=== PATIENT | female | born 1945 | race Caucasian/White ===

== ENCOUNTER 2020-01-26 20:13 | Inpatient (IN) | payer MEDICARE ==
[~2020-01-26] VITALS: Ht 160 cm; Wt 70.0 kg
[2020-01-26] MEDS ORDERED: IOHEXOL 350 MG/ML 100 ML VIAL. IV ONE (20:30)
[2020-01-26 20:49] LABS: BASO % 0 % (0-3); EOS % 0 % (0-3); HEMATOCRIT 47.3 % (36.0-47.0); HEMOGLOBIN 15.8 g/dL (12.0-15.5); LYMPH # 0.5 x10^3/uL (1.0-4.8); LYMPH % 5 % (24-48); MEAN CORPUSCULAR HEMOGLOBIN 34 pg (25-35); MEAN CORPUSCULAR HGB CONC 34 g/dL (31-37); MEAN CORPUSCULAR VOLUME 101 fL (79-100); MONO # 0.8 x10^3/uL (0.0-1.1); MONO % 8 % (0-9); NEUT # 9.1 x10^3uL (1.8-7.7); NEUT % 87 % (31-73); PLATELET COUNT 192 x10^3/uL (140-400); RED CELL DISTRIBUTION WIDTH 13.7 % (11.5-14.5); WHITE BLOOD COUNT 10.5 x10^3/uL (4.0-11.0)
--- NOTE | 2020-01-26 20:54 | RAD ---
Exam: CT head INDICATION: Aneurysm, confusion, similar to prior bleed TECHNIQUE: Sequential axial images through the head were obtained without the administration of IV contrast. Comparisons: None FINDINGS: No focal parenchymal lesion or hemorrhage is identified. There is no midline shift or sulcal effacement. There is aneurysm clipping in the right carotid terminus. Patchy hypodensity in the periventricular white matter particularly in the frontal lobes. No acute vascular territory infarction is identified. Mendes-white distinction is preserved. The ventricular system is within normal limits without compression hydrocephalus. The basal cisterns are well maintained. The visualized portions of the paranasal sinuses and mastoid air cells are well-pneumatized. No acute fractures. IMPRESSION: 1. 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 Moderate small vessel ischemic change, technically age indeterminate without recent prior imaging. No acute hemorrhage. 2. Basilar artery is somewhat hyperdense. Attention on CTA Exposure: One or more of the following in the visualized dose reduction techniques were utilized for this examination: 1. Automated exposure control 2. Adjustment of the MA and/or KV according to patient size Use of iterative of reconstructive technique FOR INTERNAL CODING PURPOSES Critical result: Findings discussed with FORTUNATO BRANNON at 01/26/2020 8:49 PM. RESULT CODE: (C) Electronically signed by: Jaspreet Erwin MD (01/26/2020 8:51 PM) [facility]
[2020-01-26 21:01] LABS: CALCIUM 9.7 mg/dL (8.5-10.1); CREATININE 1.8 mg/dL (0.6-1.0); GFR 27.4
[2020-01-26 21:08] LABS: ALBUMIN 3.9 g/dL (3.4-5.0); ALBUMIN/GLOBULIN RATIO 0.9 (1.0-1.7); TOTAL BILIRUBIN 1.7 mg/dL (0.2-1.0); TOTAL PROTEIN 8.3 g/dL (6.4-8.2)
--- NOTE | 2020-01-26 21:29 | RAD ---
Exam: CTA head and neck INDICATION: History of aneurysm, confusion, similar prior bleed TECHNIQUE: Sequential axial images through the head and neck obtained following the administration of 75 mL of Omni 350 IV contrast. Sagittal and coronal reformatted images were reconstructed from the axial data and reviewed. 3-D reformatted images were reconstructed from the axial data and reviewed. Comparisons: CT head without contrast same day FINDINGS: CTA NECK: Visualized portions of the thoracic aorta are unremarkable. Standard three-vessel aortic arch anatomy. Right common carotid artery is patent without evidence stenosis, occlusion or aneurysm. Minimal plaque at the origin of the right internal carotid artery without significant stenosis. Left common carotid artery is patent without evidence of stenosis, occlusion or aneurysm. Minimal plaque at the origin of the left internal carotid artery without significant stenosis. Right vertebral artery is patent to the basilar confluence without evidence of stenosis, occlusion or aneurysm. Left vertebral artery is patent to basilar confluence without evidence of stenosis, occlusion or aneurysm. Question micronodular lung apices. CTA HEAD: Minimal calcified plaque cavernous segment of the right internal carotid artery without significant stenosis. There is a embolization coils noted at the right carotid terminus. Right MCA is patent. Right SOHA is patent. Minimal calcified plaque at the cavernous segment of the left internal carotid artery without significant stenosis. Left MCA is patent. Left SOHA is patent. Basilar artery is patent without evidence of stenosis, occlusion or aneurysm. clinical cytogeneticist scientist are patent bilaterally. IMPRESSION: 1. No enlarged vessel occlusion. 2. Numerous micronodules seen at the visualized upper lung seen in the setting of atypical infectious process. Exposure: One or more of the following in the visualized dose reduction techniques were utilized for this examination: 1. Automated exposure control 2. Adjustment of the MA and/or KV according to patient size 3. Use of iterative of reconstructive technique FOR INTERNAL CODING PURPOSES Critical result: Findings discussed with FORTUNATO BRANNON at 01/26/2020 9:20 PM. RESULT CODE: (C) Electronically signed by: Jaspreet Erwin MD (01/26/2020 9:26 PM) [facility]
[2020-01-26] MEDS ORDERED: cefTRIAXone SODIUM 1 GM VIAL ONE (21:54)
[2020-01-26] MEDS ORDERED: IV NORMAL SALINE 1,000ML 1,000 ML IV ONE (22:00)
[2020-01-26 22:01] LABS: BARBITURATES NEG (NEG); BENZODIAZEPINES NEG (NEG); CANNABINOIDS NEG (NEG); COCAINE NEG (NEG); METHADONE NEG (NEG); OPIATES NEG (NEG); PHENCYCLIDINE NEG (NEG)
[2020-01-26 22:06] LABS: AMPHETAMINE/METHAMPHETAMINE NEG (NEG); CLARITY,URINE HAZY; COLOR,URINE AMBER
[2020-01-26 22:07] LABS: BACTERIA,URINE FEW /HPF (0-FEW); BILIRUBIN,URINE NEG (NEG); GLUCOSE,URINE NEG (NEG); NITRITE,URINE NEG (NEG); RBC,URINE RARE /HPF (0-2); SQUAMOUS EPITHELIAL CELL,UR FEW /LPF; UROBILINOGEN,URINE 0.2 mg/dL (0.2 mg/dL)
--- NOTE | 2020-01-26 22:28 | RAD ---
Exam: Chest one view INDICATION: Altered mental status TECHNIQUE: Frontal view of the chest Comparisons: None FINDINGS: The cardiomediastinal silhouette and pulmonary vessels are within normal limits. The lung and pleural spaces are clear. IMPRESSION: No acute cardiopulmonary process. Electronically signed by: Jaspreet Erwin MD (01/26/2020 10:25 PM) BRENDA
[2020-01-26] MEDS ORDERED: CONTRAST GIVEN. MC PRN (22:30)
--- NOTE | 2020-01-26 22:33 | PHYS DOC ---
Adult General Chief Complaint Chief Complaint: HALLUCINATIONS AUDIBLE/VISUAL HPI HPI Patient is a 75-year-old female with past medical history of aneurysms who presents to the emergency room with altered mental status. Family brought her in after finding her laying on the floor. Patient reports that she got down on the floor to clean something but was unable to get up. She has been laying there is for the last 4 days. She not want to call her family as she did not want them having to clean her up. Family states that she is very confused and was hallucinating upon their arrival. They state this is similar to when she has had a bleeding aneurysm in the past. She denies being ill prior to this. She states she has a history of not being able to get up off the ground. She denies chest pain, shortness of breath, cough, headache, chills, sweats, fever, abdominal pain, nausea, vomiting. Review of Systems Review of Systems Complete ROS is negative unless otherwise documented in HPI Current Medications Current Medications Current Medications Medications (Trade) Dose Ordered Sig/Angel Start Time Stop Time Status Last Admin Dose Admin Ceftriaxone Sodium 1 gm/ Sodium Chloride 50 ml @ 100 mls/hr 1X ONCE 01/26/20 22:30 01/26/20 22:59 01/26/20 22:05 100 MLS/HR Ceftriaxone Sodium (Rocephin) 1 gm STK-MED ONCE 01/26/20 21:54 01/26/20 21:55 DC Iohexol (Omnipaque 350 Mg/ml) 100 ml 1X ONCE 01/26/20 20:30 01/26/20 20:34 DC 01/26/20 20:40 100 ML Sodium Chloride 1,000 ml @ 1,000 mls/hr 1X ONCE 01/26/20 22:00 01/26/20 22:59 01/26/20 22:05 1,000 MLS/HR Allergies Allergies Allergies Coded Allergies Type Severity Reaction Last Updated Verified Tetanus Vaccines and Toxoid Allergy Intermediate 01/26/20 Yes Physical Exam Physical Exam General: Awake, alert, NAD. Well Nourished, well hydrated. Cooperative HEENT: Atraumatic, EOMI, PERRL, airway patent, moist oral mucosa Neck: Supple, trachea midline Respiratory: CTA bilaterally, normal effort, no wheezing/crackles CV: Tachycardic, no murmur, cap refill <2 GI: Soft, nondistended, nontender, no masses MSK: No obvious deformities Skin: Warm, dry. Excoriations to bilateral labia and inner thighs. Pressure wounds to bilateral elbows, buttocks, back Neuro: A&O x3, speech NL, sensory and motor grossly intact, no focal deficits Psych: Normal affect, normal mood, not suicidal or homicidal Current Patient Data Lab Results Laboratory Tests Test 01/26/20 20:30 01/26/20 21:30 White Blood Count 10.5 x10^3/uL (4.0-11.0) Red Blood Count 4.70 x10^6/uL (3.50-5.40) Hemoglobin 15.8 g/dL (12.0-15.5) H Hematocrit 47.3 % (36.0-47.0) H Mean Corpuscular Volume 101 fL (79-100) H Mean Corpuscular Hemoglobin 34 pg (25-35) Mean Corpuscular Hemoglobin Concent 34 g/dL (31-37) Red Cell Distribution Width 13.7 % (11.5-14.5) Platelet Count 192 x10^3/uL (140-400) Neutrophils (%) (Auto) 87 % (31-73) H Lymphocytes (%) (Auto) 5 % (24-48) L Monocytes (%) (Auto) 8 % (0-9) Eosinophils (%) (Auto) 0 % (0-3) Basophils (%) (Auto) 0 % (0-3) Neutrophils # (Auto) 9.1 x10^3uL (1.8-7.7) H Lymphocytes # (Auto) 0.5 x10^3/uL (1.0-4.8) L Monocytes # (Auto) 0.8 x10^3/uL (0.0-1.1) Eosinophils # (Auto) 0.0 x10^3/uL (0.0-0.7) Basophils # (Auto) 0.0 x10^3/uL (0.0-0.2) Activated Partial Thromboplast Time 24 SEC (23-33) Sodium Level 141 mmol/L (136-145) Potassium Level 3.0 mmol/L (3.5-5.1) L Chloride Level 105 mmol/L (98-107) Carbon Dioxide Level 16 mmol/L (21-32) L Anion Gap 20 (6-14) H Blood Urea Nitrogen 39 mg/dL (7-20) H Creatinine 1.8 mg/dL (0.6-1.0) H Estimated GFR (Cockcroft-Gault) 27.4 BUN/Creatinine Ratio 22 (6-20) H Glucose Level 237 mg/dL (70-99) H Glucose (Fingerstick) 243 mg/dL (70-99) H Calcium Level 9.7 mg/dL (8.5-10.1) Total Bilirubin 1.7 mg/dL (0.2-1.0) H Aspartate Amino Transferase (AST) 53 U/L (15-37) H Alanine Aminotransferase (ALT) 51 U/L (14-59) Alkaline Phosphatase 113 U/L (46-116) Lactate Dehydrogenase 298 U/L (81-234) H Creatine Kinase 915 U/L (26-192) H Troponin I Quantitative < 0.017 ng/mL (0-0.055) Total Protein 8.3 g/dL (6.4-8.2) H Albumin 3.9 g/dL (3.4-5.0) Albumin/Globulin Ratio 0.9 (1.0-1.7) L Urine Collection Type U cath Urine Color Kerry Urine Clarity Hazy Urine pH 6.0 Urine Specific [place] 1.025 Urine Protein 100 mg/dl (NEG-TRACE) Urine Glucose (UA) Neg mg/dL (NEG) Urine Ketones (Stick) 40 mg/dL (NEG) Urine Blood Trace (NEG) Urine Nitrite Neg (NEG) Urine Bilirubin Neg (NEG) Urine Urobilinogen Dipstick 0.2 mg/dL (0.2 mg/dL) Urine Leukocyte Esterase Neg (NEG) Urine RBC Rare /HPF (0-2) Urine WBC 5-10 /HPF (0-4) Urine Squamous Epithelial Cells Few /LPF Urine Bacteria Few /HPF (0-FEW) Urine Opiates Screen Neg (NEG) Urine Methadone Screen Neg (NEG) Urine Barbiturates Neg (NEG) Urine Phencyclidine Screen Neg (NEG) Urine Amphetamine/Methamphetamine Neg (NEG) Urine Benzodiazepines Screen Neg (NEG) Urine Cocaine Screen Neg (NEG) Urine Cannabinoids Screen Neg (NEG) Urine Ethyl Alcohol Neg (NEG) EKG EKG [] Radiology/Procedures Radiology/Procedures [] Heart Score Risk Factors: Risk Factors: DM, Current or recent (<one month) smoker, HTN, HLP, family history of CAD, obesity. Risk Scores: Risk Factors: DM, Current or recent (<one month) smoker, HTN, HLP, family history of CAD, obesity. Course & Med Decision Making Course & Med Decision Making Pertinent Labs and Imaging studies reviewed. (See chart for details) Patient is 75-year-old female who presents to the emergency room with altered mental status. She does have signs of laying on the ground for the last 4 days. She was taken straight to CT for CT head and CT angio given her history of aneurysm. Patient does not have a bleeding aneurysm at this time. She does have significant dehydration with uremia. She will be given fluids in the emergency room. CT angio did catch some nodules that could be related to coronavirus and Covid swab was done. Patient will be admitted for further care and evaluation. Dragon Disclaimer Dragon Disclaimer This electronic medical record was generated, in whole or in part, using a voice recognition dictation system. Departure Departure: Impression: Primary Impression: Altered mental status Additional Impressions: Dehydration Pressure injury of skin Uremia Hypokalemia Disposition: ADMITTED INPT THIS HOSP Condition: STABLE Referrals: ADELE HAQ MD (PCP) Problem Qualifiers FORTUNATO BRANNON MD Jan 26, 2020 22:32
[2020-01-26] MEDS ORDERED: DIPH,PERTUSS(ACELL),TET VAC/PF 0.5 ML SYRINGE. VAX IM ONE (23:00)
[2020-01-26] MEDS ORDERED: ONDANSETRON PF 4 MG/2 ML VIAL. IVP PRN (23:45)
[2020-01-26] MEDS ORDERED: ACETAMINOPHEN 325 MG TABLET PO PRN (23:45)
[2020-01-27] MEDS: IV NORMAL SALINE 1,000ML 1,000 ML IV SCH ×3 (00:30→18:26)
[2020-01-27 00:33] VITALS: BP 123/73
[2020-01-27] MEDS ORDERED: SPIR100T4 PO (01:54)
[2020-01-27] MEDS ORDERED: MULT-658 PO (01:54)
[2020-01-27] MEDS ORDERED: ALEN70TA60 PO (01:54)
[2020-01-27] MEDS ORDERED: POTA20TA4 PO (01:54)
[2020-01-27] MEDS ORDERED: LEVE500T21 PO (01:54)
[2020-01-27 06:17] VITALS: BP 116/58
[2020-01-27] MEDS: POTASSIUM CHLORIDE 20 MEQ TABLET.ER. PO SCH (10:16)
[2020-01-27 10:42] VITALS: BP 132/64
--- NOTE | 2020-01-27 10:53 | HP ---
ADMIT DATE: 01/26/2020 ATTENDING PHYSICIAN: Dr. Hamilton. CHIEF COMPLAINT: Altered mentation. HISTORY OF PRESENT ILLNESS: The patient is a 75-year-old female who lives independently. Supposedly, she was down on the floor, unable to get up for 3 days from Saturday night until Saturday. She did not want to call her family. She said that she passed out from attending to her cat. However, EMS personnel actually saw her the Saturday night before the family got to her. She told them that she was well enough to be by herself and dismissed them. Unfortunately, she has a longstanding history of chronic alcohol use. She has had several admissions in the past with alcohol-related bleeding esophageal varices and very critically ill. In the past, she has had a bleeding aneurysm. When I saw her, she was fairly alert. She has intentions of going home. Much of the history is obtained from her son who corroborates her alcohol use. PAST MEDICAL HISTORY: Significant for chronic alcoholism. She states she is now drinking, but the story she tells me is different from her family. She continues to drink possibly at moderate level. SOCIAL HISTORY: She is a smoker, half a pack of cigarettes daily. ALLERGIES: She has allergies to TETANUS VACCINES and TOXOIDS. CURRENT MEDICATION LISTS: Include alendronate weekly, Keppra, multivitamin, potassium and Aldactone. FAMILY HISTORY: Unobtainable. She could not get further details. REVIEW OF SYSTEMS: Significant for generalized weakness. She takes care of a cat. She is a smoker. She states that she does not drink to excess, but had been a heavy drinker in the past. She denied any nausea, hematemesis or bloody stool. All other systems reviewed and determined to be negative. PHYSICAL EXAMINATION: GENERAL: When I saw her, this is a fairly alert female. INITIAL VITAL SIGNS: Showed a blood pressure 116/58 mmHg, pulse 81 and regular, oxygen saturation 98% on room air, temperature 97.7 degrees Fahrenheit. HEENT: Head is without trauma. Her sclerae are nonicteric. The oropharynx is clear. NECK: Supple. There are no bruits. LUNGS: Otherwise clear with very minimal wheezing. CARDIOVASCULAR: Showed regular heart tones. No obvious gallops. ABDOMEN: Soft, scaphoid, nontender. EXTREMITIES: Without edema. NEUROLOGIC: Her speech is fluent. Her lower extremity strength is still weak. She is nonambulatory at this time. She remains very shaky. Her upper extremity returned goods repairer are intact and symmetrical. SKIN: Otherwise, warm and dry. There are no open lesions or sores. PERTINENT LABORATORY AND X-RAY STUDIES: The obligatory CT of the head and neck showed no vessel occlusion, no new strokes. CTA showed patent vasculature. CT head showed aneurysmal clipping of the right carotid terminus, moderate small vessel ischemic changes, no acute strokes or bleeds identified. Chest x-ray is otherwise clear. LABORATORY DATA: Hemoglobin is 15.8 g/dL with white count of 10,500. Sodium 141 mEq, potassium 3.0 mEq per liter, BUN 39, creatinine 1.8 mg/dL, nonfasting blood sugar 243, bilirubin is 1.7. First set of cardiac enzymes negative. LDH is 298 and a CPK of 915. ASSESSMENT: 1. A 75-year-old female who was found down for supposedly 3 days. 2. Generalized weakness. 3. Chronic alcoholism. 4. Wernicke-Korsakoff syndrome. 5. Generalized debilitation. 6. Chronic obstructive pulmonary disease. 7. Dehydration. 8. Mild rhabdomyolysis. 9. Hypokalemia. PLAN: 1. Admit to the inpatient unit. 2. Gentle IV hydration. 3. Diuretics have been held. 4. Potassium replacement. 5. Serial chemistry. 6. Physical therapy and occupational therapy consultation. 7. Long discussion with her son. I believe she needs a higher level of care as the patient is insisting that she wants to go home. BEAR HAMILTON MD DR: DARRION/natalie JOB#: [id number] / [id number] ADELE Corona MD
[2020-01-27 14:46] VITALS: BP 137/75
[2020-01-27 15:28] LABS: CALCIUM 8.3 mg/dL (8.5-10.1); GFR 54.1; POTASSIUM 3.7 mmol/L (3.5-5.1)
[2020-01-27 18:38] VITALS: BP 121/54
[2020-01-28 00:13] VITALS: BP 113/67
[2020-01-28] MEDS: IV NORMAL SALINE 1,000ML 1,000 ML IV SCH ×3 (02:57→16:07)
[2020-01-28 06:13] VITALS: BP 129/57
[2020-01-28] MEDS: POTASSIUM CHLORIDE 20 MEQ TABLET.ER. PO SCH (08:38)
[2020-01-28 13:32] VITALS: BP 123/53
[2020-01-28 19:57] VITALS: BP 117/47
[2020-01-28 23:07] VITALS: BP 109/54
[2020-01-29] MEDS: IV NORMAL SALINE 1,000ML 1,000 ML IV SCH ×3 (00:25→08:37)
--- NOTE | 2020-01-29 04:39 | PN ---
DATE: 01/28/2020 ATTENDING PHYSICIAN: Dr. Hamilton SUBJECTIVE: The patient is feeling better and wants to go home. OBJECTIVE FINDINGS: VITAL SIGNS: Blood pressure is 129/57, temperature 97.7. Pulse is adequate. Room air sats 95%. HEENT: Head is without trauma. Pupils are reactive. Sclerae nonicteric. Oropharynx clear. NECK: Supple, no bruits. LUNGS: Clear. CARDIOVASCULAR: Showed regular rhythm. ABDOMEN: Soft. EXTREMITIES: Without edema. NEUROLOGIC: The patient is still weak in ambulation. She was able to push up on her own, but she is still at risk for fall. LABORATORY DATA: Reviewed. Creatinine is improved to 1.0 mg/dL. ASSESSMENT: 1. A 75-year-old female found down at home with weakness. 2. Chronic alcoholism. 3. Wernicke-Korsakoff syndrome. 4. Generalized debilitation. 5. Chronic obstructive pulmonary disease. 6. Dehydration. 7. Mild rhabdomyolysis. 8. Hypokalemia. PLAN: 1. Continue IV hydration. 2. Diuretics have been held. 3. Potassium supplementation. 4. Serial chemistry. 5. Physical therapy and occupational therapy. 6. Strong encouragement for subacute rehabilitation. BEAR HAMILTON MD DR: DARRION/natalie JOB#: [id number] / [id number]
[2020-01-29 05:00] VITALS: BP 121/52
[2020-01-29] MEDS: POTASSIUM CHLORIDE 20 MEQ TABLET.ER. PO SCH (08:36)
[2020-01-29 10:07] VITALS: BP 132/57
--- NOTE | 2020-01-29 14:44 | DS ---
DATE OF DISCHARGE: 01/29/2020 ATTENDING PHYSICIAN: Dr. Hamilton. FINAL DISCHARGE DIAGNOSES: 1. A 75-year-old female who was found down at home, unable to get up. 2. Frequent falls. 3. Chronic alcoholism. 4. Wernicke-Korsakoff syndrome. 5. Generalized debilitation. 6. Chronic obstructive pulmonary disease. 7. Dehydration. 8. Mild rhabdomyolysis without any evidence of renal failure. 9. Hypokalemia, corrected. HISTORY AND PHYSICAL: The patient is a 75-year-old female admitted through the ED with increasing falls and weakness. The story changes how long she was down. She had mild rhabdomyolysis. She lives alone. There is a longstanding history of alcohol use in the past. This is verified by her son who was contacted later. PHYSICAL EXAMINATION: Please see the dictated note. PERTINENT LABORATORY AND X-RAY STUDIES: On admission, her hemoglobin is maintained at 15.8 g/dL in a hemoconcentrated state, white count of 10,500. Potassium initially was 3.0, replaced and the next day was up to 3.7 mEq, creatinine is 1.0. Nonfasting blood sugar 102 mg/dL, sodium normal 140, LDH was 298. Cardiac enzymes negative for coronary ischemia. CPK mildly elevated at 915. The obligatory CT of the head showed aneurysmal clipping changes of the right carotid terminus, moderate small vessel ischemic changes. Basilar artery somewhat hypodense, no acute strokes or bleeds identified. The head and neck CTA showed no large vessel occlusion, numerous micro nodules seen at the upper lung. Chest x-ray showed no acute infiltrates lung and pleural spaces are clear without any infiltrates or decompensation. Coronavirus was not detected. COURSE IN THE HOSPITAL: The patient was admitted. Physical therapy saw her in consultation. She had gentle IV hydration, potassium and magnesium replacement. Her meds were simplified. She did well. She was able to ambulate with some assistance. Physical therapy had seen her, she was still a bit unsteady, although she was able to transfer from hospital bed to chair independently and I did witness this myself. She has a walker and she is able to use this. Her speech was fluent. She had no dizziness and weakness improved. She was agreeable then for subacute rehabilitation. Her son is also agreeable. He is the power of loading and unloading supervisor. On the third hospital day, arrangements were made for the patient to go to [facility] facility for subacute rehabilitation. Her discharge meds have been simplified. She will continue her multivitamin 1 daily. We held her Aldactone at this time and she has not needed her Keppra dose at this time. The patient was then discharged from our hospital in stable condition with explicit instructions and followup care at the shelter. BEAR HAMILTON MD DR: DARRION/natalie JOB#: [id number] / [id number] ADELE Corona MD
== END 2020-01-29 14:19 | DRG 557 ==
LOC: ER 20:13 → 1 SOUTH 23:00
PROVIDERS: ADMIT Internal Medicine; ATTEND Internal Medicine
DX: M62.82 Rhabdomyolysis (principal); N17.0 Acute kidney failure with tubular necrosis; E86.0 Dehydration; E87.6 Hypokalemia; F10.26 Alcohol dependence with alcohol-induced persisting amnestic disorder; F17.200 Nicotine dependence, unspecified, uncomplicated; J44.9 Chronic obstructive pulmonary disease, unspecified; L89.90 Pressure ulcer of unspecified site, unspecified stage; R29.6 Repeated falls; Y92.009 Unspecified place in unspecified non-institutional (private) residence as the place of occurrence of the external cause; Z20.828 Contact with and (suspected) exposure to other viral communicable diseases; Z60.2 Problems related to living alone; W18.39XA Other fall on same level, initial encounter; Y93.89 Activity, other specified; Y99.8 Other external cause status; Z88.8 Allergy status to other drugs, medicaments and biological substances
CPT/HCPCS: 36415; 70450; 70496; 70498; 71045; 80048; 80053; 80307; 81001; 82140; 82550; 82947; 83615; 84484; 85025; 85730; 87086; 96365; J0696; P9612; Q9967; U0003; 97530; 99285-25; J7030

== ENCOUNTER → 2020-03-07 | Outpatient (CLI) | payer MEDICARE ==
[~2020-03-07] MED LIST: ALEN70TA60 PO; LEVE500T21 PO; MULT-658 PO; POTA20TA4 PO; SPIR100T4 PO
--- NOTE | 2020-03-08 11:39 | RAD ---
EXAM: CT right wrist without IV contrast INDICATION: Reason: RT WRIST PAIN AND SWELLIJNG / Spl. Instructions: / History: TECHNIQUE: Helical CT of the right wrist was performed without IV contrast and reviewed in multiplana r reformats in soft tissue algorithm reconstructions. All CT scans performed at this facility utilize dose optimization techniques as appropriate to the exam, including the following: Automated exposure control and adjustment of the mA and/or KV according to patient size (this includes techniques or st andardized protocols for targeted exams where dose is indication/reason for exam). IV CONTRAST: Administered COMPARISON: None FINDINGS: No acute fracture or aggressive appearing osseous lesions. There are cysts between the trapezium, trapezoid and the base of the second metacarpal noted in the s etting of marked joint space narrowing. Near [id number] contact between the trapezium and trapezoid as the scaphoid is present, associated with subchondral sclerosis. Similar findings at the first car pometacarpal joint are noted with subtle radial subluxation of the first metacarpal. Soft tissues show soft tissue density in the carpal tunnel and in the intercarpal soft tissues. No di screte fluid collections are seen but IV contrast was not administered. There is soft tissue stranding in the subcutaneous fat on both the volar and dorsal aspect of the wri st. No radiopaque foreign body. No abnormal soft tissue gas. IMPRESSION: 1. No acute fracture or aggressive appearing osseous lesions. 2. Degenerative changes at the wrist, most conspicuously on the radial aspect of the intercarpal ayo nts and carpometacarpal joints. 3. Soft tissue edema the wrist in the subcutaneous soft tissues. Electronically signed by: Saurabh Salvador MD (03/08/2020 11:37 AM) [id number]
== END ==
LOC: CT 10:55
PROVIDERS: ATTEND Occupational Therapist
DX: M19.031 Primary osteoarthritis, right wrist (principal); R22.31 Localized swelling, mass and lump, right upper limb
CPT/HCPCS: 73200

== ENCOUNTER → 2020-05-20 | Outpatient (CLI) | payer MEDICARE ==
[~2020-05-20] MED LIST changes: -ALEN70TA60 PO; +ALEN70TA71 PO
== END ==
LOC: MAMMO 10:10
PROVIDERS: ATTEND Specialist
DX: Z12.31 Encounter for screening mammogram for malignant neoplasm of breast (principal)
CPT/HCPCS: 77067

== ENCOUNTER → 2021-06-28 | Outpatient (CLI) | payer MEDICARE ==
--- NOTE | 2021-06-28 12:57 | RAD ---
INDICATION: 76 years of age asymptomatic female patient presents for screening mammography. No person al or family history of breast cancer TECHNIQUE: Full field craniocaudal and mediolateral oblique images of both breasts were obtained usi ng digital technique with tomosynthesis and also analyzed with computer-aided detection software. COMPARISON: Prior mammographic imaging dating back to April 25, 2017. BREAST COMPOSITION: Category C: The breast tissue is heterogeneously dense, which could obscure detec tion of small masses. FINDINGS: No suspicious masses, microcalcifications or architectural distortion is present to suggest malignanc y in either breast. Stable bilateral vascular and nonvascular calcifications. The visualized axillae are unremarkable. IMPRESSION: No mammographic evidence of malignancy. RECOMMENDATION: Annual screening mammography is recommended, unless clinically indicated sooner based on symptoms or change in physical exam. BIRADS 2: BENIGN This study was interpreted with the benefit of Computerized Aided Detection (CAD). ?Your patient's mammogram demonstrates that she has dense breast tissue (breast density category C or D), which could hide abnormalities, and if she has other risk factors for breast cancer that have be en identified, she might benefit from supplemental screening tests that may be suggested by you as he r ordering physician. Dense breast tissue, in and of itself, is a relatively common condition. Theref ore, this information is not provided to cause undue concern, but rather to raise your awareness and to promote discussion with your patient regarding the presence of other risk factors, in addition to dense breast tissue. Your patient's mammography results will be sent to her. Patient information is entered into the reminder system with a target due date for the next screening mammogram. Mammography is the most sensitive method for finding small breast cancers, but it does not detect the m all and is not a substitute for careful clinical examination. A negative mammogram does not negate a clinically suspicious finding and should not result in delay in biopsying a clinically suspicious a bnormality. "Our facility is accredited by the [employer] Mammography Program." Electronically signed by: Griffin Smith DO (06/28/2021 12:54 PM) [id number]
--- NOTE | 2021-06-28 14:20 | RAD ---
DXA BONE DENSITY AXIAL History: Postmenopausal Comparison: None. TECHNIQUE: Dual energy x-ray absorptiometry of the lumbar spine and right hip was performed. T-score of average bone mineral density based was calculated based on standard deviations above or below the expected young adult normal value. Diagnostic definitions were established by the [employer] z[employer]. FINDINGS: The average bone mineral density associated with L1-L4 is 1.105 g/cm^2, corresponding with a T-score of -0.6. The average total bone mineral density associated with right hip is 0.776 g/cm^2, corresponding with a T-score of -1.5. Refer to the worksheets for full detail. IMPRESSION: 1. Osteopenia. Average bone mineral density yields a T-score between -1.0 and -2.5. Fracture risk is increased. Electronically signed by: Clay Chambers MD (06/28/2021 2:17 PM) [id number]
== END ==
LOC: MAMMO 10:41
PROVIDERS: ATTEND Specialist
DX: Z12.31 Encounter for screening mammogram for malignant neoplasm of breast (principal); M85.89 Other specified disorders of bone density and structure, multiple sites
CPT/HCPCS: 77063; 77067; 77080